=== PATIENT | female | born 1990 | race African-American/Black ===

== ENCOUNTER 2022-09-04 22:33 | Emergency (ER) | payer OTHER ==
[2022-09-04 22:53] VITALS: TEMP 98.4; BMI 30.8
[2022-09-04 23:23] LABS: EPI CELLS 18 /uL (0-25.1); HYALINE CASTS 7 /uL (0-3.1); PH,URINE 5.5 (5.0-8.0); URINE APPEARANCE CLEAR; URINE BACTERIA 536 /uL (0-1359); URINE BILIRUBIN NEGATIVE (NEGATIVE); URINE COLOR YELLOW; URINE GLUCOSE (UA) NEGATIVE (NEGATIVE); URINE KETONE TRACE (NEGATIVE); URINE LEUK ESTERASE NEGATIVE (NEGATIVE); URINE NITRITE NEGATIVE (NEGATIVE); URINE PROTEIN 1+ (NEGATIVE); URINE RBC 20 /uL (0-23.9); URINE WBC 30 /uL (0-25.8)
[2022-09-04 23:24] LABS: HCG,QUALITATIVE URINE Negative
[2022-09-05 01:14] VITALS: BP 131/102; PULSE 67; RESP 20
[2022-09-05] MEDS ORDERED: ACETAMINOPHEN 500 MG TABLET (FP) PO ONE (01:43)
[2022-09-05] MEDS ORDERED: ACETAMINOPHEN 325 MG TABLET (FP) ONE (01:45)
== END 2022-09-05 02:15 | disposition home or self-care (01) ==
LOC: JER 22:33
DX: S70.11XA Contusion of right thigh, initial encounter (principal); M54.50 Low back pain, unspecified; V49.40XA Driver injured in collision with unspecified motor vehicles in traffic accident, initial encounter
CPT/HCPCS: 70450-TC; 71046-TC-FY; 72125-TC; 72131-TC; 81003; 84703; 93005; 93010; 99285-25

== ENCOUNTER 2022-09-06 10:15 | Emergency (ER) | payer OTHER ==
[2022-09-06 10:23] VITALS: BP 121/85; PULSE 72; RESP 16; TEMP 98.7; BMI 30.8
[2022-09-06] MEDS ORDERED: KETOROLAC TROMETHAMINE 30 MG/1 ML VIAL IM ONE (11:29)
[2022-09-06] MEDS ORDERED: KETOROLAC TROMETHAMINE 30 MG/1 ML VIAL ONE (11:38)
== END 2022-09-06 12:07 | disposition home or self-care (01) ==
LOC: JERFT 10:15
PROC: 3E0233Z Introduction of Anti-inflammatory into Muscle, Percutaneous Approach (ICD-10-PCS; principal; 2022-09-06)
DX: M54.2 Cervicalgia (principal); M54.50 Low back pain, unspecified
CPT/HCPCS: 99284-25

== ENCOUNTER 2022-10-18 06:24 | Emergency (ER) | payer OTHER ==
[2022-10-18 06:33] VITALS: BP 145/92; PULSE 81; RESP 16; TEMP 97.9; BMI 30.8
== END 2022-10-18 08:27 | disposition home or self-care (01) ==
LOC: JER 06:24
DX: R07.0 Pain in throat (principal)
CPT/HCPCS: 99281-25

== ENCOUNTER 2024-06-07 13:53 | Emergency (ER) | payer OTHER ==
[2024-06-07 14:03] VITALS: BP 147/97; PULSE 64; RESP 16; TEMP 98.2; BMI 28.2
[2024-06-07 15:10] LABS: EPI CELLS >36 /uL (0-25.1); HYALINE CASTS 3 /uL (0-3.1); URINE APPEARANCE CLOUDY; URINE BACTERIA 2575 /uL (0-1359); URINE BILIRUBIN NEGATIVE (NEGATIVE); URINE COLOR YELLOW; URINE GLUCOSE (UA) NEGATIVE (NEGATIVE); URINE KETONE TRACE (NEGATIVE); URINE LEUK ESTERASE 1+ (NEGATIVE); URINE NITRITE NEGATIVE (NEGATIVE); URINE PROTEIN NEGATIVE (NEGATIVE); URINE RBC 15 /uL (0-23.9); URINE WBC 49 /uL (0-25.8)
[2024-06-07 15:11] LABS: HCG,QUALITATIVE URINE Negative
[2024-06-07 15:36] LABS: BASO % 0.9 % (0-2.0); EOS % 1.2 % (0-4.5); HEMATOCRIT 40.3 % (32.4-45.2); HEMOGLOBIN 13.1 GM/dL (10.7-15.3); MCH 23.3 pg (25.7-33.7); MCHC 32.4 g/dl (32.0-36.0); MEAN CELL VOLUME 71.8 fl (80-96); NEUT % 57.9 % (42.8-82.8); RBC 5.61 M/mm3 (3.60-5.2); RDW 14.4 % (11.6-15.6); WHITE BLOOD COUNT 5.1 K/mm3 (4.0-10.0)
[2024-06-07 15:49] LABS: POTASSIUM 4.1 mmol/L (3.5-5.1)
[2024-06-07 15:52] LABS: ALBUMIN 3.8 g/dl (3.4-5.0); BLOOD UREA NITROGEN 7.4 mg/dL (7-18)
[2024-06-07 15:55] LABS: CREATININE 0.7 mg/dL (0.55-1.3)
[2024-06-07 15:57] LABS: TOT PROT 7.2 g/dl (6.4-8.2)
[2024-06-07 16:17] LABS: PLATELET COUNT 191 10^3/uL (134-434); PLATELET ESTIMATE ADEQUATE
[2024-06-07 16:46] LABS: HIV INTERPRETATION NEGATIVE (NEGATIVE)
== END 2024-06-07 16:27 | disposition home or self-care (01) ==
LOC: JER 13:53
DX: R05.9 Cough, unspecified (principal); N30.00 Acute cystitis without hematuria; J06.9 Acute upper respiratory infection, unspecified; Z20.822 Contact with and (suspected) exposure to COVID-19
CPT/HCPCS: 0241U-QW; 36415; 71046-TC-FY; 80053; 81003; 84703; 85025; 86803; 87389; 99284-25